=== PATIENT | female | born 1990 | race Two or more races ===

== ENCOUNTER 2019-04-16 20:26 | Emergency (ER) | payer OTHER ==
[~2019-04-16] VITALS: Ht 157.5 cm; Wt 79.4 kg
== END 2019-04-17 00:23 | disposition home or self-care (01) ==
LOC: ER 20:26
DX: J11.1 Influenza due to unidentified influenza virus with other respiratory manifestations (principal); B96.0 Mycoplasma pneumoniae [M. pneumoniae] as the cause of diseases classified elsewhere; R50.9 Fever, unspecified